=== PATIENT | male | born 1945 | race Caucasian/White ===

== ENCOUNTER 2021-10-30 21:03 | Inpatient (IN) | payer BC ==
[~2021-10-30] VITALS: Ht 172.7 cm; Wt 56.2 kg
[2021-10-30] MEDS ORDERED: normal saline 1000ML IV soln IVB ONE (21:05)
--- NOTE | 2021-10-30 21:27 | NUR ---
Patient shivering and appears cold. Patient was reportedly found outside by EMS. Unable to obtain accurate temperature at this time, will continue to try obtaining temperature.
[2021-10-30 21:29] LABS: BASOPHILS # (AUTO) 0.1 X10'3 (0-0.2); BASOPHILS % (AUTO) 1.1 % (0-1); EOSINOPHILS # (AUTO) 0.1 X10'3 (0-0.9); EOSINOPHILS % (AUTO) 1.9 % (0-6); HEMATOCRIT 34.7 % (42.0-52.0); HEMOGLOBIN 11.5 g/dl (14.0-17.9); LYMPHOCYTES # (AUTO) 1.3 X10'3 (1.1-4.8); LYMPHOCYTES % (AUTO) 17.6 % (21-51); MEAN CORPUSCULAR HEMOGLOBIN 34.2 PG (27.0-31.0); MEAN CORPUSCULAR VOLUME 103.6 FL (78-98); MONOCYTES # (AUTO) 0.5 X10'3 (0-0.9); MONOCYTES % (AUTO) 6.5 % (2-12); NEUTROPHILS # (AUTO) 5.3 X10'3 (1.8-7.7); NEUTROPHILS % (AUTO) 72.9 % (42-75); PLATELET COUNT 426 X10'3 (140-440); RED BLOOD COUNT 3.35 X10'6 (4.70-6.10); RED CELL DISTRIBUTION WIDTH 15.7 % (11.5-14.5); WHITE BLOOD COUNT 7.3 X10'3 (4.5-11.0)
[2021-10-30 21:46] LABS: ALANINE AMINOTRANSFERASE 12 U/L (12-78); ALBUMIN 3.1 G/DL (3.4-5.0); ALBUMIN/GLOBULIN RATIO 0.7 (1.1-1.5); ALKALINE PHOSPHATASE 94 IU/L (46-116); ANION GAP 18 (8-16); ASPARTATE AMINO TRANSFERASE 12 U/L (10-37); BILIRUBIN,TOTAL 0.2 MG/DL (0.1-1.0); BLOOD UREA NITROGEN 21 MG/DL (7-18); BUN/CREATININE RATIO 12.1 (5.4-32.0); CALCIUM 8.2 MG/DL (8.5-10.1); CHLORIDE 104 MMOL/L (99-107); CREATININE 1.74 MG/DL (0.60-1.10); LIPASE 148 U/L (73-393); POTASSIUM 5.5 MMOL/L (3.5-5.1); SODIUM 140 MMOL/L (135-145); TOTAL CARBON DIOXIDE 17.6 MMOL/L (24-32); TOTAL PROTEIN 7.5 G/DL (6.4-8.2); eGFR 38 ML/MIN
[2021-10-30 21:50] LABS: GLUCOSE 236 MG/DL (70-104)
[2021-10-30 22:51] LABS: ETHANOL < 0.010 GM/DL (0.0-0.010)
[2021-10-31 02:18] LABS: CLARITY,URINE CLOUDY (Clear); COLOR,URINE YELLOW (Yellow); GLUCOSE, URINE 100 mg/dl (Neg); KETONES,URINE NEGATIVE (Neg); LEUKOCYTE ESTERASE ,URINE NEGATIVE (Neg); NITRITES, URINE NEGATIVE (Neg); OCCULT BLOOD,URINE TRACE-INTACT (Neg); PH,URINE 5.5 (4.8-8.0); PROTEIN,URINE NEGATIVE (Neg); UROBILINOGEN,URINE 0.2 E.U/dL (0.2-1.0)
[2021-10-31 02:27] LABS: UA COLLECTION TYPE STRAIGHT CATH
[2021-10-31 02:39] LABS: SQUAMOUS EPITHELIAL CELL,UR FEW /LPF (FEW)
[2021-10-31 02:44] LABS: TRANSITIONAL EPI CELLS,URINE MODERATE /HPF
[2021-10-31 02:47] LABS: BACTERIA,URINE NONE SEEN /HPF (Neg); RBC,URINE 0-2 /HPF (0-2); WBC,URINE 0-4 /HPF (0-4)
[2021-10-31] MEDS ORDERED: bisacodyl 10mg suppository rectal RC PRN (03:45)
[2021-10-31] MEDS ORDERED: mag hydrox/Alum hydrox/simeth 30ml oral suspension PO PRN (03:45)
[2021-10-31] MEDS ORDERED: HYDROcodone/acetaminophen 5mg/325mg tablet PO PRN (03:45)
[2021-10-31] MEDS ORDERED: acetaminophen 650mg rectal suppository RC PRN (03:45)
[2021-10-31] MEDS ORDERED: magnesium hydroxide 30ml (MOM) UD suspension PO PRN (03:45)
[2021-10-31] MEDS ORDERED: ondansetron/PF 4mg/2ml inj IV PRN (03:45)
[2021-10-31] MEDS ORDERED: morphine 2 MG/ML inj. syringe IV PRN (03:45)
[2021-10-31] MEDS ORDERED: diphenhydrAMINE 25mg capsule PO PRN (03:45)
[2021-10-31] MEDS ORDERED: ondansetron 4mg rapidly disintigrating tab PO PRN (03:45)
[2021-10-31] MEDS ORDERED: diphenhydrAMINE 50 mg/ml inj IV PRN (03:45)
[2021-10-31] MEDS ORDERED: acetaminophen 325mg tablet PO PRN ×2 (03:45)
[2021-10-31] MEDS ORDERED: glucagon, human recombinant 1mg kit SUBCUT PRN (03:50)
[2021-10-31] MEDS ORDERED: dextrose 50%-water 50ml dispensing syringe IV ONE (03:50)
[2021-10-31] MEDS ORDERED: sodium bicarbonate (8.4%) 1 mEq/ml syringe IV ONE (03:50)
[2021-10-31] MEDS ORDERED: dextrose 50%-water 50ml dispensing syringe IV PRN ×2 (03:50)
[2021-10-31] MEDS ORDERED: MESSAGE TO PHARMACY PO ONE (03:50)
[2021-10-31] MEDS ORDERED: dextrose ORAL solution 15 GM/59 ML bottle PO PRN ×2 (03:50)
[2021-10-31] MEDS ORDERED: insulin regular, human 10 units/0.1 ml syringe IV ONE (03:50)
[2021-10-31] MEDS ORDERED: sodium polystyrene sulfonate 15gm/60ml oral suspension PO ONE (03:50)
[2021-10-31] MEDS ORDERED: insulin Lispro (HumaLOG) vial - multi-dose SQ SCH (03:50)
[2021-10-31] MEDS ORDERED: nicotine 21mg patch - 24 hr TD ONE (03:50)
[2021-10-31] MEDS ORDERED: albuterol 2.5 MG/3 ML nebule NEB ONE (03:50)
[2021-10-31] MEDS ORDERED: sodium bicarbonate (8.4%) inj. 1 MEQ/ML ML IV ONE (04:30)
[2021-10-31 04:58] LABS: HEMOGLOBIN A1C 5.7 % (4.5-6.2)
--- NOTE | 2021-10-31 05:00 | NUR ---
Patient in room [facility]. I have received report from SHELLY Hines and had the opportunity to ask questions and assume patient care. VSS
[2021-10-31 05:07] LABS: APTT 27 SECONDS (22-32); D-DIMER 4.15 MG/L FEU (0-0.50)
[2021-10-31 05:14] LABS: CREATINE KINASE 113 U/L (39-308); LIPASE 110 U/L (73-393)
[2021-10-31 05:19] VITALS: BP 161/67
--- NOTE | 2021-10-31 05:19 | NUR ---
Pt arrived on floor in a wheelchair. Ambulated to bed
[2021-10-31] MEDS: normal saline 1000ml 1,000 ML IV SCH ×2 (05:40→17:40)
--- NOTE | 2021-10-31 06:33 | NUR ---
Problems reprioritized. Patient report given, questions answered & plan of care reviewed with SHELLY Meng. Addendum: 10/31/21 at 0654 by Gilda Ashraf RN SHELLY Murillo was not Yusra, Report given to SHELLY Ortega and SHELLY Mena
[2021-10-31 07:00] VITALS: BP 154/59
--- NOTE | 2021-10-31 07:03 | NUR ---
Patient in room [facility]. I have received report from Gilda and had the opportunity to ask questions and assume patient care.
[2021-10-31] MEDS ORDERED: heparin, porcine 5000 units/ml vial SQ SCH (08:00)
[2021-10-31] MEDS ORDERED: enoxaparin 100mg/ml syringe SUBCUT SCH (08:00)
[2021-10-31] MEDS ORDERED: potassium Cl 40MEQ/1/2NS 520ml 520 ML IV PRN (09:40)
[2021-10-31] MEDS ORDERED: magnesium 4gm in 100ml NS 100 ML IV PRN (09:40)
[2021-10-31] MEDS ORDERED: magnesium Cl slow-release 64mg tablet PO PRN (09:40)
[2021-10-31] MEDS ORDERED: potassium Cl 20 mEq SR tablet PO PRN ×2 (09:40)
[2021-10-31] MEDS ORDERED: NO HOME MEDS (10:13)
[2021-10-31 11:00] VITALS: BP 141/63
[2021-10-31] MEDS: docusate sod 100mg capsule PO SCH ×2 (11:18→20:00)
[2021-10-31] MEDS ORDERED: Permethrin Cream 60gm TP SCH (11:40)
[2021-10-31 12:57] LABS: ALBUMIN 2.5 G/DL (3.4-5.0); ANION GAP 7 (8-16); BLOOD UREA NITROGEN 22 MG/DL (7-18); BUN/CREATININE RATIO 15.4 (5.4-32.0); CALCIUM 7.6 MG/DL (8.5-10.1); CHLORIDE 112 MMOL/L (99-107); CREATININE 1.43 MG/DL (0.60-1.10); GLUCOSE 89 MG/DL (70-104); POTASSIUM 4.9 MMOL/L (3.5-5.1); SODIUM 142 MMOL/L (135-145); eGFR 48 ML/MIN
[2021-10-31] MEDS ORDERED: heparin 10,000 units/1 ML INJ IV PRN (13:45)
[2021-10-31] MEDS ORDERED: heparin 10,000 units/1 ML INJ IV ONE (13:45)
[2021-10-31] MEDS: heparin 25,000 UNIT/250ml bag 250 ML IV SCH ×2 (15:36→22:50)
--- NOTE | 2021-10-31 18:44 | NUR ---
Problems reprioritized. Patient report given, questions answered & plan of care reviewed with Maile Gr.
--- NOTE | 2021-10-31 18:46 | NUR ---
Patient in room [facility]. I have received report from KATIE BRAVO AND OCTAVIA BRAVO and had the opportunity to ask questions and assume patient care.
[2021-10-31 20:00] VITALS: BP 157/77
[2021-10-31] MEDS: K and/or MAG REPLACEMENT MC SCH (20:00)
[2021-10-31] MEDS ORDERED: iohexol 350MG/ML 100ml bottle IV ONE (20:32)
[2021-10-31] MEDS ORDERED: temazepam 15mg capsule PO PRN (21:00)
[2021-11-01] VITALS: BP 146/72
[2021-11-01] MEDS: normal saline 1000ml 1,000 ML IV SCH ×2 (00:45→08:27)
--- NOTE | 2021-11-01 06:00 | NUR ---
Patient in room [facility]. I have received report from Maile Gr and had the opportunity to ask questions and assume patient care.
[2021-11-01 06:28] LABS: BASOPHILS # (AUTO) 0.1 X10'3 (0-0.2); BASOPHILS % (AUTO) 1.4 % (0-1); EOSINOPHILS # (AUTO) 0.2 X10'3 (0-0.9); EOSINOPHILS % (AUTO) 2.6 % (0-6); HEMATOCRIT 32.2 % (42.0-52.0); HEMOGLOBIN 10.8 g/dl (14.0-17.9); LYMPHOCYTES # (AUTO) 1.4 X10'3 (1.1-4.8); LYMPHOCYTES % (AUTO) 23.2 % (21-51); MEAN CORPUSCULAR HEMOGLOBIN 33.7 PG (27.0-31.0); MEAN CORPUSCULAR HGB CONC 33.5 g/dL (33.0-36.5); MEAN CORPUSCULAR VOLUME 100.5 FL (78-98); MEAN PLATELET VOLUME 7.6 FL (7.4-10.4); MONOCYTES # (AUTO) 0.6 X10'3 (0-0.9); MONOCYTES % (AUTO) 9.2 % (2-12); NEUTROPHILS # (AUTO) 3.9 X10'3 (1.8-7.7); NEUTROPHILS % (AUTO) 63.6 % (42-75); PLATELET COUNT 302 X10'3 (140-440); WHITE BLOOD COUNT 6.2 X10'3 (4.5-11.0)
[2021-11-01 07:00] VITALS: BP 134/73
[2021-11-01 07:01] LABS: ALANINE AMINOTRANSFERASE 14 U/L (12-78); ALBUMIN 2.8 G/DL (3.4-5.0); ALBUMIN/GLOBULIN RATIO 0.7 (1.1-1.5); ALKALINE PHOSPHATASE 81 IU/L (46-116); ANION GAP 10 (8-16); ASPARTATE AMINO TRANSFERASE 19 U/L (10-37); BILIRUBIN,TOTAL 0.2 MG/DL (0.1-1.0); BLOOD UREA NITROGEN 25 MG/DL (7-18); BUN/CREATININE RATIO 16.8 (5.4-32.0); CALCIUM 8.1 MG/DL (8.5-10.1); CHLORIDE 108 MMOL/L (99-107); CREATININE 1.49 MG/DL (0.60-1.10); MAGNESIUM 2.1 MG/DL (1.5-2.4); PHOSPHORUS 3.4 MG/DL (2.3-4.5); POTASSIUM 5.2 MMOL/L (3.5-5.1); SODIUM 141 MMOL/L (135-145); TOTAL CARBON DIOXIDE 22.7 MMOL/L (24-32); TOTAL PROTEIN 6.9 G/DL (6.4-8.2); eGFR 46 ML/MIN
[2021-11-01 07:02] LABS: GLUCOSE 84 MG/DL (70-104)
[2021-11-01] MEDS: K and/or MAG REPLACEMENT MC SCH ×2 (08:00→08:28)
[2021-11-01] MEDS: docusate sod 100mg capsule PO SCH ×2 (08:26→21:26)
[2021-11-01 12:00] VITALS: BP 139/64
--- NOTE | 2021-11-01 18:35 | NUR ---
Patient in room [facility]. I have received report from KATIE BRAVO AND OCTAVIA BRAVO and had the opportunity to ask questions and assume patient care.
[2021-11-01 20:00] VITALS: BP 124/64
[2021-11-01] MEDS: heparin, porcine 5000 units/ml vial SQ SCH (21:27)
--- NOTE | 2021-11-01 21:50 | NUR ---
PATIENT CAUGHT SMOKING IN THE BATHROOM. REFUSES AT FIRST TO GIVE LIGHTED CIGARETTE TO STAFF BUT EVENTUALLY GAVE IT TO THE AID. LIGHTED CIGARETTE THROWN AND FLUSHED IN THE TOILET. 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 PATIENT INSTRUCTED THAT SMOKING IS NOT ALLOWED IN THE HOSPITAL. CALLED DR. ALEXANDER AND WAS INFORMED THAT PATIENT WAS CAUGHT SMOKING IN THE BATHROOM AND IS PERSISTENT TO SMOKE AGAIN, WITH ORDER TO GIVE ATIVAN AND NICOTINE PATCH.
[2021-11-01] MEDS ORDERED: LORazepam 1 MG tablet PO PRN (21:55)
[2021-11-01] MEDS: nicotine 21mg patch - 24 hr TD SCH (22:27)
[2021-11-02] VITALS: BP 121/69
--- NOTE | 2021-11-02 06:15 | NUR ---
Problems reprioritized. Patient report given, questions answered & plan of care reviewed with OCTAVIA BRAVO.
[2021-11-02 07:00] VITALS: BP 137/77
[2021-11-02] MEDS: K and/or MAG REPLACEMENT MC SCH (08:00)
[2021-11-02 08:05] LABS: BASOPHILS # (AUTO) 0.1 X10'3 (0-0.2); BASOPHILS % (AUTO) 1.3 % (0-1); EOSINOPHILS # (AUTO) 0.2 X10'3 (0-0.9); EOSINOPHILS % (AUTO) 3.2 % (0-6); HEMATOCRIT 31.3 % (42.0-52.0); HEMOGLOBIN 10.6 g/dl (14.0-17.9); LYMPHOCYTES # (AUTO) 1.6 X10'3 (1.1-4.8); LYMPHOCYTES % (AUTO) 24.7 % (21-51); MEAN CORPUSCULAR HEMOGLOBIN 33.4 PG (27.0-31.0); MEAN CORPUSCULAR HGB CONC 33.7 g/dL (33.0-36.5); MEAN CORPUSCULAR VOLUME 98.9 FL (78-98); MEAN PLATELET VOLUME 7.1 FL (7.4-10.4); MONOCYTES # (AUTO) 0.7 X10'3 (0-0.9); MONOCYTES % (AUTO) 10.5 % (2-12); NEUTROPHILS # (AUTO) 3.9 X10'3 (1.8-7.7); NEUTROPHILS % (AUTO) 60.3 % (42-75); PLATELET COUNT 299 X10'3 (140-440); RED BLOOD COUNT 3.17 X10'6 (4.70-6.10); RED CELL DISTRIBUTION WIDTH 14.9 % (11.5-14.5); WHITE BLOOD COUNT 6.4 X10'3 (4.5-11.0)
[2021-11-02] MEDS: docusate sod 100mg capsule PO SCH (08:44)
[2021-11-02] MEDS: heparin, porcine 5000 units/ml vial SQ SCH (08:44)
[2021-11-02] MEDS: nicotine 21mg patch - 24 hr TD SCH (08:45)
[2021-11-02 08:59] LABS: ALANINE AMINOTRANSFERASE 14 U/L (12-78); ALBUMIN 2.7 G/DL (3.4-5.0); ALBUMIN/GLOBULIN RATIO 0.8 (1.1-1.5); ALKALINE PHOSPHATASE 75 IU/L (46-116); ANION GAP 9 (8-16); ASPARTATE AMINO TRANSFERASE 21 U/L (10-37); BILIRUBIN,TOTAL 0.2 MG/DL (0.1-1.0); BLOOD UREA NITROGEN 32 MG/DL (7-18); BUN/CREATININE RATIO 19.9 (5.4-32.0); CALCIUM 8.2 MG/DL (8.5-10.1); CHLORIDE 108 MMOL/L (99-107); CREATININE 1.61 MG/DL (0.60-1.10); MAGNESIUM 2.1 MG/DL (1.5-2.4); PHOSPHORUS 3.5 MG/DL (2.3-4.5); POTASSIUM 4.7 MMOL/L (3.5-5.1); SODIUM 138 MMOL/L (135-145); TOTAL CARBON DIOXIDE 20.7 MMOL/L (24-32); TOTAL PROTEIN 6.1 G/DL (6.4-8.2); eGFR 42 ML/MIN
[2021-11-02 09:01] LABS: GLUCOSE 93 MG/DL (70-104)
--- NOTE | 2021-11-02 14:15 | NUR ---
pt discharged via wheelchair with staff. [employer] picked up to take pt home. PIV removed, all discharge insturctions given. Dr Yo spoke tih patient just prior to dicharge, [facility] contact info given for follow up appt
== END 2021-11-02 14:15 | disposition home or self-care (01) | DRG 682 ==
LOC: ER 21:04 → ED HOLD 10-31 03:48 → UNDOADMIN 10-31 03:48 → ED HOLD 10-31 04:29 → EDBEDREQSVC 10-31 04:44 → SUR 3N 10-31 05:20
PROVIDERS: ADMIT Family Medicine; ATTEND Family Medicine
PROC: B32T1ZZ Computerized Tomography (CT Scan) of Left Pulmonary Artery using Low Osmolar Contrast (ICD-10-PCS; principal; 2021-10-31)
PROC: B3201ZZ Computerized Tomography (CT Scan) of Thoracic Aorta using Low Osmolar Contrast (ICD-10-PCS; 2021-10-31)
PROC: B32S1ZZ Computerized Tomography (CT Scan) of Right Pulmonary Artery using Low Osmolar Contrast (ICD-10-PCS; 2021-10-31)
DX: N17.0 Acute kidney failure with tubular necrosis (principal); E43 Unspecified severe protein-calorie malnutrition; B86 Scabies; N13.30 Unspecified hydronephrosis; E11.65 Type 2 diabetes mellitus with hyperglycemia; I48.0 Paroxysmal atrial fibrillation; E87.5 Hyperkalemia; Z20.822 Contact with and (suspected) exposure to COVID-19; F17.200 Nicotine dependence, unspecified, uncomplicated; W01.0XXA Fall on same level from slipping, tripping and stumbling without subsequent striking against object, initial encounter; R68.0 Hypothermia, not associated with low environmental temperature; S60.512A Abrasion of left hand, initial encounter; S60.511A Abrasion of right hand, initial encounter; I12.9 Hypertensive chronic kidney disease with stage 1 through stage 4 chronic kidney disease, or unspecified chronic kidney disease; J43.9 Emphysema, unspecified; E11.22 Type 2 diabetes mellitus with diabetic chronic kidney disease; N18.9 Chronic kidney disease, unspecified; R26.2 Difficulty in walking, not elsewhere classified; R47.81 Slurred speech; R79.89 Other specified abnormal findings of blood chemistry; Z91.81 History of falling; Z91.19 Patient's noncompliance with other medical treatment and regimen; Y93.89 Activity, other specified; Y92.89 Other specified places as the place of occurrence of the external cause; Y99.8 Other external cause status; Z71.6 Tobacco abuse counseling; Z68.27 Body mass index [BMI] 27.0-27.9, adult
CPT/HCPCS: 36415; 71045; 71275; 80048; 80053; 80320; 81001; 82550; 82948; 83036; 83605; 83690; 83735; 83880; 84100; 84145; 84443; 85025; 85379; 85610; 85730; 87040; 87081; 87635; 93970; 99285; C9803; G0378; J1644; J1815; J3490; J7030; Q0163; Q9967